=== PATIENT | male | born 1995 | race Caucasian/White ===

== ENCOUNTER 2018-02-23 21:44 | Emergency (ER) | payer SELFPAY ==
[~2018-02-23] VITALS: Ht 177.8 cm; Wt 74.8 kg
--- NOTE | 2018-02-23 21:48 | NUR ---
PT AMBULATORY TO ER BED 11. BIB FAMILY AFTER HAVING ALLERGIC REACTION TO EATING SHRIMP X 1 METAL FRAMER. NOTED HIVES ON BILAT ARMS/CHEST/ABD. PT PLACED ON STUDENT MINISTRY PASTOR. PHYSICAL THERAPY ASSISTANT AT BEDSIDE FOR EVAL. VSS/RESP EVEN UNLABORED/NAD NOTED/SKIN WARM AND DRY/DENIES N-V-D/AFEBRILE/AOX4.
[2018-02-23] MEDS ORDERED: FAMOTIDINE/PF INJ 20 MG/2 ML VIAL IV ONE ×2 (21:59→22:30)
[2018-02-23] MEDS ORDERED: diphenhydrAMINE HCL 50 MG/ML VIAL ONE (21:59)
[2018-02-23] MEDS ORDERED: methylPREDNISolone SOD SUCC 125 MG/2ML VIAL ONE (21:59)
--- NOTE | 2018-02-23 22:00 | NUR ---
17G IV TO R AC X 1 ATTEMPT USING ASEPTIC TECH. IV FLUSHES EASILY WITH NS, NO S/S INFILTRATION NOTED AT THIS TIME.
[2018-02-23] MEDS ORDERED: methylPREDNISolone SOD SUCC 125 MG/2ML VIAL IV ONE (22:30)
[2018-02-23] MEDS ORDERED: diphenhydrAMINE HCL 50 MG/ML VIAL IV ONE (22:30)
--- NOTE | 2018-02-23 22:30 | NUR ---
NOTED IMPROVEMENT IN REDNESS/HIVES. PT STATES HE FEELS BETTER.
--- NOTE | 2018-02-23 23:28 | NUR ---
IV removed. Catheter intact and site benign. Pressure and 4x4 applied to site. No bleeding noted. Patient discharged with family to home in stable condition. Written and verbal after care instructions given, patient instructed not to drive. Patient and family verbalize understanding of instruction. Patient is awake and alert to self, day, and place. Patient ambulatory with a steady gait.
[2018-02-23 23:31] VITALS: BP 108/63
== END 2018-02-23 23:32 | disposition home or self-care (01) ==
LOC: ER 21:46
DX: L50.0 Allergic urticaria (principal); T78.1XXA Other adverse food reactions, not elsewhere classified, initial encounter; F17.200 Nicotine dependence, unspecified, uncomplicated; Y92.89 Other specified places as the place of occurrence of the external cause
CPT/HCPCS: 96374; 96375; 99284; 99406; A4606; J1200; J2930; J3490; Z7610